=== PATIENT | male | born 2000 | race Two or more races ===

== ENCOUNTER 2025-03-17 18:04 | Emergency (ER) | payer BC ==
[~2025-03-17] VITALS: Ht 172.7 cm; Wt 72.6 kg
[2025-03-17] MEDS: IV NS 0.9% 1,000 ML BAG IV ONE (18:37)
[2025-03-17] MEDS: ONDANSETRON HCL/PF 4 MG/2 ML VIAL IV ONE (18:44)
[2025-03-17 19:02] LABS: PLATELET COUNT (AUTO) 203 K/uL (150-450); RED BLOOD CELL COUNT(AUTO) 5.96 MIL/uL (4.5-6.0); RED CELL DISTRIBUTION WIDTH 13.8 % (11.5-15.0); WHITE BLOOD COUNT (AUTO) 10.5 K/uL (4.3-11.0)
[2025-03-17 19:10] LABS: CALCIUM, SERUM 10.1 mg/dL (8.5-10.1); CREATININE 1.2 mg/dL (0.6-1.3); SODIUM SERUM 143.0 mmol/L (136-145); UREA NITROGEN, BLOOD 17.0 mg/dL (7-18)
[2025-03-17 19:20] LABS: ASPARTATE AMINOTRANSFERASE 32.0 U/L (15-37); TOTAL PROTEIN, SERUM 8.6 g/dL (6.4-8.2)
[2025-03-17 19:24] LABS: LYMPHOCYTES % (MANUAL) 6 % (16-48); MONOCYTES % (MANUAL) 2 % (0-11.0); NEUTROPHILS % (MANUAL) 92 (42-76); PLATELET ESTIMATE ADEQUATE
[2025-03-17] MEDS ORDERED: ONDA4TAB5 PO (19:29)
[2025-03-17 19:40] VITALS: BP 124/77; TEMP 98.7; O2SAT 100
== END 2025-03-17 19:43 | disposition home or self-care (01) ==
LOC: ER 18:19
DX: A05.9 Bacterial foodborne intoxication, unspecified (principal)
CPT/HCPCS: 99285; 96374; 76705; 96361; 85027; 80048; 83690; 80076; 85007; 36415; J2405; J7030